=== PATIENT | male | born 1975 | race Caucasian/White ===

== ENCOUNTER → 2017-07-04 | Outpatient (CLI) | payer OTHER ==
[~2017-07-04] MED LIST: KEFLEX 500MG.500 MG PO; NAPROSYN 500MG500 MG PO
--- NOTE | 2017-07-05 09:06 | RADIOLOGY REPORT PS360 ---
MRI-LOW EXT ANY JOINT W/O-RT MRI RIGHT KNEE HISTORY: PLICA SYNDROME OF RIGHT KNEE Patient Age: 42 years: Male Ordering Physician: Nazario Camara MD TECHNIQUE: Multiplanar multisequence imaging 1.5 T MR COMPARISON :Plain films right knee 04/20/2017 Also MRI of the left knee from 2014 FINDINGS . Medial Meniscus: There is prominent horizontal intrameniscal signal at medial meniscus. It appears to primarily degenerative grade 2 horizontal linear intrameniscal signal seen with mucoid degeneration but is quite pronounced here at the posterior horn of the medial meniscus & suspect it may pass through the meniscal surface at free margin is seen on sagittal PD image 17. Making today a meniscal tear technique noting the generous signal which may reflect fluid within this posterior meniscal abnormality.. Generous volume of the posterior horn also observed. The cartilage at the medial compartment seems to be fairly well-maintained The lateral compartment and lateral meniscus appear to remain intact. Joint spaces well-maintained. Cartilage satisfactory. Patellofemoral joint. Normal relationships with generous cartilage posterior patella remains intact. Small joint effusion suprapatella bursa. The PCL and ACL are intact. The quadriceps and patellar tendon intact. The medial collateral and lateral collateral ligaments intact. I see no obvious thickened plica at the suprapatellar bursa region. There is one relatively thin possible plica seen here but unimpressive overall. Of finally would note small fluid collection beneath the lateral aspect of the patellar tendon at its insertion upon prominent hypertrophy tibial tubercle. The patellar tendon itself appears intact. Right Tibial tubercle demonstrates well marginated hypertrophic bone fragment here with findings more evident on right than left... Requires correlation. Patellar tendon itself appears satisfactory IMPRESSION 1. . Prominent linear intrameniscal signal at posterior horn of Medial Meniscus.. On close inspection this likely extends through the free margin of the medial meniscus, thus suspect more likely reflects a horizontal Medial Meniscal Tear. (Rather than merely grade 2 degenerative signal change) 2. Small joint effusion. 3. No obvious thickened plica. There may be some small thin plica questioned is seen at suprapatellar bursa, but these are unimpressive/nonspecific by MR 4. Small fluid collection along lateral aspect of the patellar tendon insertion at the hypertrophy tibial tubercle incidentally noted requires correlation.. 5.. PCL and ACL intact. Collateral ligaments intact. Patellar tendon intact. Question mild thickening of the quadriceps tendon but it is normal signal & overall intact.
== END ==
LOC: RAD 12:52
DX: M67.51 Plica syndrome, right knee (principal)

== ENCOUNTER 2017-09-03 06:59 | Day surgery (SDC) | payer OTHER ==
[~2017-09-03] VITALS: Ht 182.9 cm; Wt 68.0 kg
--- NOTE | 2017-09-03 10:52 | Anesthesia Record ---
Anesthesia Record Part II Discharge time: 1024 Destination: Same day surgery PACU nurse assessment review? Yes Patient is: Awake, Stable Anesthesia complications? No at 1057
--- NOTE | 2017-09-03 10:52 | Anesthesia Record ---
Anesthesia Record Part I Total IV fluids: 1100 EBL (ml): 10 Urine Output: 0 Units of blood given: 0 B/P: 119/72 % SaO2: 97 Pulse: 66 Resps: 10 Temp: 97.3 Patient is: Drowsy, Stable Stable to PACU at: 1044 at 1051
--- NOTE | 2017-09-03 12:49 | Operative Note ---
Procedure/Operative Record Date of Procedure: 09/03/17 Referring physician: Dr. Camara Pre-op diagnosis: 1. Medial meniscal tear, right knee 2. Plica syndrome, right knee Post-op diagnosis: 1. Medial meniscal tear, right knee 2. Plica syndrome, right knee 3. Early degenerative arthritis, right knee Procedure performed: 1. Examination of RIGHT knee under anesthesia 2. Partial medial meniscectomy, RIGHT knee 3. Chondroplasty, RIGHT knee 4. Resection of medial plica, RIGHT knee Surgeon: Reed LUX,Vito Jaimes Crm Campaign Manager(s): Ruchi Gonzalez Anesthesia: General Indications: The patient is a 42-year-old male with RIGHT knee pain for over 2 years which is unresponsive to conservative management and evidence of a medial meniscal tear on imaging. Clinically his symptoms are consistent with the diagnosis of a medial meniscal tear and plica syndrome. Resection of the torn medial meniscus, resection of the medial plica and chondroplasty/debridement is indicated to relieve the pain and improve function of the knee. Findings: Examination of the RIGHT knee under anesthesia, showed a stable knee joint. There is a small amount of knee joint effusion. Knee range of motion is from 0- 150 of flexion. Operative findings showed grade 2 degenerative changes over the patellofemoral joint and lateral tibial plateau. The medial meniscus had a complex degenerative tear involving the body and posterior horn. The lateral meniscus was noted to be intact. There is a prominent, thickened, pathological looking medial plica with evidence of abrasion over the edge of the medial femoral condyle. No loose bodies were noted in the knee. The anterior cruciate ligament and posterior cruciate ligaments were intact. Mild synovitis was noted. Description of procedure: On the day of the procedure the patient and his were met in the preoperative area and positively identified. A physical examination was performed and documented. The limb was marked. I again discussed the diagnosis, management options including both nonsurgical and surgical. I discussed the proposed surgical procedure, risks and benefits and alternatives in detail. The complications discussed include but are not limited to infection, injury to nerves and blood vessels, injury to the ligaments and tendons, knee stiffness, arthrofibrosis, incomplete relief, incomplete functional recovery, DVT, PE, CRPS , complications related to anesthesia including heart attack, stroke and even . I have also discussed about the likely need for further surgery in future. I told him that there were no guarantees with surgery; he could be no better or even worse. We also discussed the postoperative recovery and rehabilitation protocol. I believe the patient to be well informed with regard to the proposed surgery. I told him that it would take few months for full recovery of the knee after surgery. He expressed a full understanding and wished to proceed with the planned surgery. The consent form was reviewed and signed. Patient was brought to the operating room and placed supine on the operating table. All the bony prominences were appropriately padded. A general anesthesia was administered by the anesthesia team. A well-padded tourniquet cuff was placed over the RIGHT upper thigh. Examination of the RIGHT knee under anesthesia was performed. The findings were as documented above. The RIGHT knee was then prepped and draped in the usual sterile fashion. A preprocedure timeout was performed as per protocol. Administration of prophylactic IV antibiotics was confirmed with the anesthetic team. The arthroscopic portals were marked on the skin. The limb was exsanguinated with Esmarch bandage and the tourniquet was inflated to 300 mmHg- see the nursing notes for tourniquet time. I then made an anterolateral arthroscopic portal and introduced the arthroscope and performed the knee examination. I then created an anteromedial portal under direct vision. Findings included diffuse grade 2 degenerative changes over the patellofemoral joint and lateral tibial plateau. The lateral femoral condyle and medial compartment were relatively well preserved. The medial meniscus had a complex degenerative tear involving the body and posterior horn. The lateral meniscus was noted to be intact. There were no loose bodies in the knee. The anterior cruciate ligament and posterior cruciate ligaments were intact. Mild synovitis was noted. After performing a thorough arthroscopic examination, I proceeded to perform partial medial meniscectomy, plica resection and chondroplasty. Using the arthroscopic biters and 4 mm aggressive shaver, I performed the partial medial meniscectomy of the body and posterior horn to a stable margin. With the arthroscopic shaver, I also performed a chondroplasty removing the loose articular cartilage to a stable margin over the lateral tibial plateau as well as over the patellar articular surface. I then resected the thickened and inflamed medial plica and debrided it with the arthroscopic shaver. The knee joint was thoroughly washed out at the end of the procedure. The instruments were removed, the knee joint was emptied of the irrigating fluid and the arthroscopic sheath was removed. The portals were sutured with 4-0 Ethilon [id number] sutures. I then injected 30 mL of plain Marcaine around the portals as well as into the knee joint for postoperative pain relief. Sterile dressings and the pressure bandage was applied. The tourniquet cuff was removed from the thigh. The patient was then reversed from the anesthetic and transferred onto the [facility]. He was transported to the postoperative recovery area in stable condition. He tolerated the procedure well and there were no immediate complications. The swab, needle and instrument counts were correct according to scrub team at the end of the procedure. Following recovery from the anesthetic the patient was discharged home with appropriate written instructions. Follow-up in my office in 2-3 days for change of dressings. EBL (ml): 0 Implant: None Complications: None Specimens: None at 0678
[2017-09-03 13:27] VITALS: BP 120/79
== END 2017-09-03 12:30 | disposition home or self-care (01) ==
LOC: SDC 06:59
PROVIDERS: Orthopaedic Surgery
PROC: 0SBC4ZZ Excision of Right Knee Joint, Percutaneous Endoscopic Approach (ICD-10-PCS; principal; 2017-09-03 08:45)
DX: M23.221 Derangement of posterior horn of medial meniscus due to old tear or injury, right knee (principal)
CPT/HCPCS: J2405